=== PATIENT | female | born 1985 | race Two or more races ===

== ENCOUNTER 2020-11-11 15:24 | Outpatient (CLI) | payer OTHER | END 2020-11-11 16:26 | disposition home or self-care (01) | LOC: OFIC 805 15:24 | PROVIDERS: ATTEND Otolaryngology Otology & Neurotology | DX: R05 Cough (principal); R09.82 Postnasal drip; K21.9 Gastro-esophageal reflux disease without esophagitis ==

== ENCOUNTER 2021-12-29 14:51 | Outpatient (CLI) | payer OTHER | END 2021-12-29 14:54 | disposition home or self-care (01) | LOC: MRI 14:51 | DX: G45.9 Transient cerebral ischemic attack, unspecified (principal) ==